=== PATIENT | male | born 1940 | race Caucasian/White ===

== ENCOUNTER 2018-08-22 10:16 | Outpatient (CLI) | payer MEDICARE, BC ==
--- NOTE | 2018-08-22 13:28 | ULT ---
SCROTAL ULTRASOUND WITH KEY SCALE AND DOPPLER COLOR FLOW IMAGING AND SPECTRAL ANALYSIS: Date: 08/22/18 INDICATION: Scrotal mass. No prior comparisons. FINDINGS: The testes reveal appropriate echotexture without evidence of intratesticular mass, bilaterally. Dopp ler evaluation does reveal flow to each testis without evidence of torsion. There is a grouping of pr ominent sized cystic structures at the right inguinal region, just cephalad to the epididymis with sl ight internal complexity. This could relate to a conglomerate of multiple cystic components of a comp snow hydrocele versus other etiologies for mildly complex cysts of this region, which do not appear to arise from the epididymis given their more cephalad location. Separately, an epididymal cyst is seen on the right, approximately 2.0 cm in size. Subcentimeter left epididymal cyst is present. Right-maxx ed hydrocele is present. there is mild prominence of vasculature of the left inguinal region, nonspec ific. IMPRESSION: 1. No sonographic evidence of intratesticular mass or torsion. 2. Complex grouping of cystic structures of the right inguinal canal region, as discussed above. The se likely account for the patient's palpable abnormality. Correlate clinically in this region. 3. Additional details are discussed above. POS: [facility]
== END 2018-08-22 10:17 | disposition home or self-care (01) ==
LOC: SCSULT 10:16
PROVIDERS: ATTEND Family Medicine
DX: N50.9 Disorder of male genital organs, unspecified (principal); N50.3 Cyst of epididymis; N43.3 Hydrocele, unspecified
CPT/HCPCS: 76870; 93976

== ENCOUNTER 2024-05-09 10:06 | Outpatient (CLI) | payer MEDICARE, BC | END 2024-05-09 10:07 | disposition home or self-care (01) | LOC: RAD 10:06 | PROVIDERS: ATTEND Family Medicine | DX: R13.10 Dysphagia, unspecified (principal); R63.30 Feeding difficulties, unspecified | CPT/HCPCS: 74230 ==